=== PATIENT | male | born 1970 | race Caucasian/White ===

== ENCOUNTER 2016-12-17 01:28 | Emergency (ER) | payer OTHER ==
[~2016-12-17 01:28] MED LIST: VICODIN 5/500 T1 TAB PO
[2016-12-17] MEDS ORDERED: LEVEMIR FL100 UNIT/1 SUBQ (01:49)
[2016-12-17] MEDS ORDERED: NOVOLOG100 U/ML SUBQ (01:50)
[2016-12-17] MEDS ORDERED: NEURONTIN (01:50)
[2016-12-17 01:54] LABS: HEMATOCRIT 37.5 % (38.0-50.0); HEMOGLOBIN 12.4 gm/dL (13.0-16.0); MEAN CORPUSCULAR HEMOGLOBIN 27.5 PG (28-34); MEAN CORPUSCULAR HGB CONC 33.1 g/dL (30-36); MEAN PLATELET VOLUME 6.8 FL (6.5-11.5); RED BLOOD COUNT 4.52 X10e (3.90-5.60); RED CELL DISTRIBUTION WIDTH 13.8 % (11.0-15.5); WHITE BLOOD COUNT 14.2 X10e3 (4.0-10.5)
[2016-12-17 02:14] LABS: BUN/CREATININE RATIO 23.33; CALCIUM SERUM 8.6 mg/dL (8.4-10.2); CREATININE SERUM 0.6 mg/dL (0.6-1.4); GLOM FILT RATE Estimated 118.9 mL/min (>60)
[2016-12-17 02:15] LABS: POTASSIUM 2.6 mmol/L (3.5-5.1)
[2016-12-17 02:58] LABS: URINE SOURCE CLEAN CATCH
[2016-12-17 03:00] LABS: URINE APPEARANCE CLEAR; URINE BILIRUBIN NEG (NEG); URINE BLOOD NEG (NEG); URINE COLOR YELLOW; URINE GLUCOSE 100 MG/DL (NORM); URINE KETONE NEG (NEG); URINE LEUKOCYTE ESTERASE NEG (NEG); URINE NITRATE NEG (NEG); URINE PROTEIN NEG (NEG); URINE SPECIFIC GRAVITY >=1.030 (1.003-1.035); URINE UROBILINOGEN 0.2 MG/DL (NORM)
[2016-12-17 03:01] LABS: MICRO INDICATED? NO
[2016-12-17 03:11] LABS: AMPHETAMINE POS (NEG); BARBITURATES NEG (NEG); BENZODIAZEPINES NEG (NEG); COCAINE NEG (NEG); MARIJUANA NEG (NEG); OPIATES NEG (NEG); TRICYCLIC ANTIDEPRESSANTS NEG (NEG); U METHADONE NEG (NEG)
== END 2016-12-17 05:35 | disposition home or self-care (01) ==
LOC: SED 01:28
PROVIDERS: Emergency Medicine
DX: E11.649 Type 2 diabetes mellitus with hypoglycemia without coma (principal); E87.6 Hypokalemia; F15.10 Other stimulant abuse, uncomplicated; Z88.5 Allergy status to narcotic agent; Z88.6 Allergy status to analgesic agent; Z79.4 Long term (current) use of insulin
CPT/HCPCS: 80048; 80307; 81003; 82947; 83735; 85027; 96361; 96374; 96375; 99284

== ENCOUNTER 2017-03-04 16:56 | Emergency (ER) | payer OTHER ==
--- NOTE | ~2017-03-04 | CT71 ---
[facility]. [facility] A Service of [facility] RADIOLOGY TEXT RESULTS PATIENT: ABELARDO PHAM LOCATION: SED : 66 UNIT #: [id number] AGE: [address]: RAMON GUZMAN SEX: M ORDER DR: [id number] [place] [id number] E MR#: [id number] Acc #: [id number] NAME: ABELARDO PHAM : 1970 SEX: M STUDY DATE/TIME: 03/04/2017 18:00 UNIT: SED ROOM: STUDY DESCRIPTION: CT Head Wo Contrast Attending Physician: Ramon Guzman Ordering Physician: Ramon Guzman Primary Care Physician: Primary Care Physician No MEDICAL IMAGING REPORT This report is preliminary unless electronic signature is present. EXAM CT head 03/04/2017 HISTORY Focus on right ear canal, right ear pain, possible broken stick in ear canal. FINDINGS CT head performed skull base through vertex without intravenous contrast. No prior studies for comparison. This CT examination was performed with one or more of the following radiation dose reduction techniques: automatic exposure control, adjustment of mA and/or kV according to patient size, and iterative reconstruction. The brainstem is unremarkable. Cerebellum and cerebral hemispheres show normal ferreira matter - white matter differentiation. No hemorrhage. No evidence of acute cortical ischemia. Midline structures are nondisplaced. The basal ganglia are intact. Ventricles, cisterns and sulci within normal limits of size and contour. No intra- or extraaxial mass effect or abnormal intracranial fluid collection. The intraorbital soft tissues are unremarkable. No fracture. No radiodense foreign body seen in bilateral external auditory canals. No acute appearing soft tissue abnormality. Please correlate with physical examination. The visualized paranasal sinuses and mastoid air cells are clear. No fracture. IMPRESSION 1. No radiodense foreign body is seen in the bilateral external auditory canals. No acute appearing soft tissue abnormality. Please correlate with physical examination. 2. No fracture. 3. Brain is normal in appearance. [facility] A Service of [facility] RADIOLOGY TEXT RESULTS PATIENT: ABELARDO PHAM LOCATION: SED : 66 UNIT #: [id number] AGE: [address]: RAMON GUZMAN SEX: M ORDER DR: Dictated by... Tyrone Payne M.D. THIS IS AN ELECTRONICALLY VERIFIED REPORT Tyrone Payne M.D. at 03/05/2017 6:04 PM Diana TD: 03/05/2017 07:05 JOB #: [id number] MEDICAL IMAGING REPORT Page 1 of 1
[~2017-03-04 16:56] MED LIST changes: +LEVEMIR FL100 UNIT/1 SUBQ; +NEURONTIN; +NOVOLOG100 U/ML SUBQ
== END 2017-03-04 18:33 | disposition home or self-care (01) ==
LOC: SED 16:56
DX: S09.21XA Traumatic rupture of right ear drum, initial encounter (principal); E11.9 Type 2 diabetes mellitus without complications; F15.10 Other stimulant abuse, uncomplicated; F17.200 Nicotine dependence, unspecified, uncomplicated; Z88.5 Allergy status to narcotic agent; X58.XXXA Exposure to other specified factors, initial encounter
CPT/HCPCS: 70450; 90471; 90715; 99283

== ENCOUNTER 2017-04-23 12:22 | Inpatient (IN) | payer OTHER ==
[~2017-04-23] VITALS: Ht 177.8 cm; Wt 68.2 kg
--- NOTE | ~2017-04-23 | CT57 ---
[facility] A Service of [facility] RADIOLOGY TEXT RESULTS PATIENT: ABELARDO PHAM LOCATION: [facility] 310- : 66 UNIT #: [id number] AGE: [address]: Omar Houston MD SEX: M ORDER DR: [id number] [facility] [address] [facility]. [place], [place] [address] [id number] I MR#: [id number] Acc #: [id number] NAME: ABELARDO PHAM : 1970 SEX: M STUDY DATE/TIME: 04/24/2017 13:27 UNIT: A PCU ROOM: 310 STUDY DESCRIPTION: CT Chest Wo Cont Attending Physician: Omar Houston M.D. Ordering Physician: Omar Houston M.D. Primary Care Physician: Primary Care Physician No MEDICAL IMAGING REPORT This report is preliminary unless electronic signature is present EXAM CT chest without contrast HISTORY Shortness of air, respiratory failure, productive cough for several days. TECHNIQUE This CT exam was performed with one or more of the following radiation dose reduction techniques: automatic control, adjustment of mA and/or kV according to patient size, and iterative reconstruction. FINDINGS CT chest without contrast demonstrates minimal patchy subsegmental infiltrate or atelectasis in the posterior left upper lobe, in the superior right upper lobe, and slightly greater subsegmental infiltrates in the lingula and left lower lobe. Additional mild atelectasis in the posterior lower lobes. Trace bilateral pleural effusions. There is a 7 mm subpleural nodule in the posterior left upper lobe, approximating the interlobar fissure. Unless there are older outside CTs to document long-term stability, followup chest CT in 6-12 months would be recommended. Mild right axillary adenopathy with nodes measuring up to 1.3 cm. No mediastinal or hilar adenopathy. IMPRESSION 1. [id number] patchy multifocal subsegmental infiltrates in the lingula and left lower lobe and to a lesser degree in the bilateral upper lobes. These are nonspecific and could be infectious or inflammatory. 2. Minimal incidental subpleural atelectasis in the posterior lower lobes and incidental trace bilateral pleural effusions. 3. 7 mm pulmonary nodule in the posterior left upper lobe closely approximating the interlobar fissure. Unless there are older outside CTs to document long-term stability, follow up chest CT in 6-12 STS. [facility] A Service of [facility] RADIOLOGY TEXT RESULTS PATIENT: ABELARDO PHAM LOCATION: [facility] 310-01 : [birth year] UNIT #: [id number] AGE: [address]: Omar Houston MD SEX: M ORDER DR: months would be recommended. 4. Mild right axillary adenopathy measuring up to 1.3 cm. Dictated by... Jayson Tello M.D. THIS IS AN ELECTRONICALLY VERIFIED REPORT Jayson Tello M.D. at 04/25/2017 2:15 PM ROSAURA/makenzie TD: 04/25/2017 03:52 JOB #: [id number] MEDICAL IMAGING REPORT Page 1 of 1 COPY
--- NOTE | ~2017-04-23 | CO ---
Unit #: [id number] #: [id number] Patient: ABELARDO PHAM [id number] [address] [place], [place] [address] [id number] I MR#: [id number] NAME: ABELARDO PHAM ROOM: 310 Age: 46 Sex: M Admission Date: 04/23/2017 : 1970 Attending Physician: Omar Houston M.D. Primary Care Physician: Primary Care Physician No Consultation Date: 04/24/2017 CONSULTATION REPORT REASON FOR CONSULTATION Management of diabetes mellitus HISTORY OF PRESENT ILLNESS This is a 46-year-old male with history of type 1 diabetes mellitus, methamphetamine abuse, hypertension, depression, who presented to the emergency room for the low blood sugar. On the day of admission, family was unable to wake the patient up. EMS was called. His blood sugar was found to be only 23. The patient was treated with the dextrose. Upon arrival, blood glucose of 84. In the ER, the patient had O2 saturation of 78%. Chest x-ray was negative. He was treated with the IV fluids and started on Zosyn and vancomycin due to the elevated lactic acid levels and white cell count above 15,000. The patient's hypoglycemia has resolved. I have been asked to see the patient for management of diabetes mellitus and hypoglycemia. PAST MEDICAL HISTORY Type 1 diabetes mellitus, insulin dependent; depression; hypertension; methamphetamine abuse. PAST SURGICAL HISTORY Hand surgery and foot surgery. SOCIAL HISTORY Lives alone. SOCIAL HISTORY There is no tobacco or alcohol. Denies illicit drugs. FAMILY HISTORY None currently. ALLERGIES To morphine and hydrocodone. HOME MEDICATIONS Bactroban, Humalog, Zestril, Levemir 25 units b.i.d., and NovoLog sliding scale. The patient does not remember the exact amount of scale. REVIEW OF SYSTEMS A 12-point review of systems completed. Please see HPI, otherwise it is unremarkable. PHYSICAL EXAMINATION Unit #: [id number] #: [id number] Patient: ABELARDO PHAM GENERAL: He is looking comfortable. No acute distress. VITAL SIGNS: Temperature 98, pulse 89, respirations 16, blood pressure 134/90. HEENT: EOMI. Pupils equally reactive to light. NECK: Supple. CHEST: Good air entry. CVS: Regular rhythm. No murmurs. ABDOMEN: Soft and nontender. Bowel sounds positive. EXTREMITIES: No edema or ulcers are noted. DIAGNOSTIC STUDIES LABORATORY RESULTS: Reviewed. Creatinine is 1.6, sodium 137, potassium 3.7. A1c is 11.3. ASSESSMENT 1. Type 1 diabetes mellitus, poorly controlled. 2. History of methamphetamine abuse. 3. Hypoglycemia. 4. Insulin dependence. PLAN Restart the patient on Levemir 10 units subcu b.i.d., NovoLog 4 to 5 units each meal. Cover with supplemental sliding scale. We will limit his carbs to 60 g per meal. Accu-Cheks a.c. and h.s. Dictated by... Reina Loaiza/pasquale TD: 04/24/2017 20:00 JOB #: [id number] CONSULTATION REPORT Page 1 of 1 X Carlos Rees MD X CONSULTATION REPORT
--- NOTE | ~2017-04-23 | OR ---
Unit #: [id number] #: [id number] Patient: ABELARDO PHAM [id number] [place] [address] [facility]. [place], [place] [address] [id number] I MR#: [id number] NAME: ABELARDO PHAM ROOM: 310 Date of Procedure: 04/25/2017 Admission Date: 04/23/2017 Surgeon: Josh Carmona M.D. : 1970 Attending Physician: Omar Houston M.D. Primary Care Physician: Primary Care Physician No OPERATIVE REPORT PREOPERATIVE DIAGNOSES Anemia of chronic possible chronic gastrointestinal blood loss and iron deficiency anemia. The patient has history of diabetes which is uncontrolled. PROCEDURE PERFORMED Upper gastrointestinal endoscopy and biopsy. POSTOPERATIVE DIAGNOSES Completely normal examination except for mild antral erythema. A biopsy was obtained from the antrum for CLOtest. The examination was otherwise normal. RECOMMENDATIONS 1. Discontinue IV Protonix. The patient will be started on Protonix 40 mg p.o. daily. 2. Repeat CBC and CMP in the morning. 3. The patient will be discharged home from GI standpoint. 4. 1800 calorie CCD diet. SEDATION USED MAC. DESCRIPTION OF PROCEDURE Following detailed explanation of the potential risks and complications of an upper endoscopy, namely perforation, bleeding, complication related to sedation, the patient was brought to GI lab and laid in the left lateral decubitus position. Lubricated tip of the Olympus video upper endoscope was passed through the bite block into the proximal esophagus under direct vision. The entire esophageal mucosa was examined and appeared normal. Z-line was nicely demarcated, there being no esophagitis or hiatus hernia. The scope was then advanced into the gastric cavity and the latter was insufflated. Mucosa of the fundus, body, and antrum was examined. The patient was noted to have mild diffuse prepyloric antral erythema. Pylorus was intubated with visualization of the normal duodenal bulb and second and third part of the duodenum. Upon withdrawal and retroflexion, incisura, cardia, and greater curve examined and no additional findings noted. A biopsy was obtained from the antrum for CLOtest. The scope was withdrawn in the distal esophagus. The entire esophageal mucosa was examined all the way up to pharynx. No additional findings noted. The patient tolerated the procedure without any postprocedure complications. Unit #: [id number] #: [id number] Patient: ABELARDO PHAM Dictated by... Reina Carrillo/pasquale TD: 04/27/2017 06:52 JOB #: [id number] CC: Carlos Rees M.D. OPERATIVE REPORT Page 1 of 1 X Josh Carmona MD X PROCEDURE OPERATIVE NOTE
--- NOTE | ~2017-04-23 | CO ---
Unit #: [id number] #: [id number] Patient: ABELARDO CHING [id number] [address] [place], [place] [address] [id number] I MR#: [id number] NAME: ABELARDO CHING ROOM: 310 Age: 46 Sex: M Admission Date: 04/23/2017 : 1970 Attending Physician: Omar Houston M.D. Consultation Date: 04/26/2017 CONSULTATION REPORT REASON FOR CONSULTATION Acute kidney injury. HISTORY OF PRESENT ILLNESS Mr. Ching is a 46-year-old white male with a past medical history of diabetes mellitus, hypertension, depression, history of methamphetamine use, who presented to the hospital because of hypoglycemia. At the emergency department, the patient was noted to have a low blood sugar of 23, and chest x-ray in the emergency department showed possible pneumonia. His lactic acid at the time of admission was 3.9 with a white blood cell of 15.5. The patient stated that he has been having fever and chills as well. The patient was started on Zosyn, vancomycin, and IV fluid. His creatinine at time of admission was 0.6 mg/dL; next day, it went up to 1.6; next day, it went to 2.3 and today, it is 2.2 mg/dL. We were consulted to help in management of his acute kidney injury. The patient stated that he feels much better today. He is making a lot more urine than at the time of his presentation. PAST MEDICAL HISTORY As mentioned above: 1. Diabetes mellitus, type 1. 2. Hypertension. 3. Depression. 4. History of methamphetamine use. PAST SURGICAL HISTORY Hand surgery and foot surgery. FAMILY HISTORY Notable for diabetes in his dad. ALLERGIES Morphine and hydrocodone. HOME MEDICATIONS Include Humalog, Zestril, Levemir, Bactroban. REVIEW OF SYSTEMS A 12-point review of systems was conducted and they are all negative except what is per History of Present Illness. PHYSICAL EXAMINATION VITAL SIGNS: Temperature 96.8, heart rate 98, respiratory rate 21, and blood pressure 120/80, O2 saturations 98%. Unit #: [id number] #: [id number] Patient: ABELARDO CHING GENERAL: Alert and oriented x3, in no acute distress. NECK: No JVD. No lymphadenopathy. CHEST: Clear to auscultation bilaterally. HEART: Regular rate and rhythm. S1 and S2 normal. ABDOMEN: Bowel sounds positive. No tenderness. No guarding. EXTREMITIES: No edema. No cyanosis. No clubbing. DIAGNOSTIC STUDIES LABORATORY RESULTS: BUN is 17, creatinine 2.2, calcium 8.3. Hemoglobin 9.6, white blood cells 10.4, hematocrit 28.3. Ferritin 151. TSH 5.3. ASSESSMENT AND PLAN 1. Acute kidney injury, likely due to sepsis and possibly related to vancomycin/Zosyn toxicity though it is less likely. The patient's creatinine today is down to 2.2 mg/dL. Kidney function was likely continuing to improve. We will increase IV fluid rate to 150 mL/hour. We will avoid all nephrotoxic medication. We will obtain urinalysis and urine electrolytes. Urinalysis was collected at time of admission showed no evidence of proteinuria or hematuria. 2. Pneumonia. Currently, the patient is switched to Levaquin every 48 hours, adjusted for his kidney function. We will continue. 3. History of diabetes mellitus. 4. History of hypertension. 5. History of methamphetamine use. Thank you for allowing us to take care of this patient. Dictated by... Magui Mccarty M.D. CRISTIAN/pasquale TD: 04/27/2017 05:28 JOB #: [id number] CONSULTATION REPORT Page 1 of 1 X X CONSULTATION REPORT
--- NOTE | ~2017-04-23 | DS ---
Unit #: [id number] #: [id number] Patient: ABELARDO PHAM [id number] [address] [address] [id number] I MR#: [id number] NAME: ABELARDO PHAM ROOM: 310 Age: 46 Sex: M Admission Date: 04/23/2017 : 1970 Discharge Date: 04/30/2017 Attending Physician: Julian Holman M.D. Primary Care Physician: No Primary Care Physician DISCHARGE SUMMARY DISCHARGE DIAGNOSES 1. Diabetes mellitus. 2. Hypoglycemia. 3. Pneumonia. 4. Acute kidney injury with acute tubular necrosis, acute renal failure. 5. Lower extremity diabetic ulcers. JOB [id number] ADDEND HOSPITAL COURSE The patient is a 46-year-old man with a history significant for insulin dependent diabetes mellitus, who presented to the hospital with an episode of hypoglycemia. Blood sugar initially on presentation was noted to be 23. Received treatment with IV dextrose and improved to 84. During his admission, the patient's insulin regimen was adjusted and patient did not have any further episodes of hypoglycemia. His blood sugar was controlled during the admission also. Also during that admission the patient was diagnosed with pneumonia on presentation and he was started on empiric broad spectrum antibiotics. His symptoms improved and he will be completing a course of Levaquin for completion of his antibiotics. Also during admission, the patient was noted to have acute renal failure secondary to acute kidney injury. Nephrology was consulted and the patient was monitored. Creatinine was as high as 2.3. Discharge creatinine is 1.9. His JOHANNY inhibitor has been discontinued. His blood pressure will be managed with Norvasc. Also during his admission, the patient received local wound care for his lower extremity ulcers which he will continue as an outpatient. DISCHARGE MEDICATIONS 1. Mupirocin cream to apply topically over affected areas twice daily. 2. Amlodipine 5 mg p.o. twice daily. 3. Levemir insulin 10 units subcu twice daily before breakfast and before supper. 4. Aspart insulin 4 units subcu 3x a day with meals. 5. NovoLog sliding scale - for blood sugar between 150 and 199 1 unit, for blood sugar between 200 and 250 2 units. 6. Pepcid 20 mg p.o. daily. 7. Levaquin 750 mg p.o. q.48 hour for 3 more doses. DISCHARGE INSTRUCTIONS Patient is to follow up with primary care physician. Patient is to have a followup basic metabolic panel drawn once weekly for 2 weeks with results Unit #: [id number] #: [id number] Patient: ABELARDO PHAM faxed to nephrology, Dr. Dexter Singh's office. Dictated by... Reina Jimenez/thu TD: 05/01/2017 11:46 JOB #: [id number] DISCHARGE SUMMARY Page 1 of 1 X X DISCHARGE SUMMARY
--- NOTE | ~2017-04-23 | CR72 ---
[facility] A Service of [facility] RADIOLOGY TEXT RESULTS PATIENT: ABELARDO PHAM LOCATION: [facility] 310- : [birth year] UNIT #: [id number] AGE: [address]: Aniya Swanson MD SEX: M ORDER DR: [id number] [facility] [address]. [place], [place] [address] [id number] I MR#: [id number] #: [id number] NAME: ABELARDO PHAM : 1970 SEX: M STUDY DATE/TIME: 04/23/2017 13:30 [facility] RO[facility]: 310 STUDY DESCRIPTION: CR Chest Single View Portable Attending Physician: Aniya Sawnson M.D. Ordering Physician: Kee Arriola75 Cami Almanza Primary Care Physician: Primary Care Physician No MEDICAL IMAGING REPORT This report is preliminary unless electronic signature is present EXAM Chest x-ray 04/23/2017. HISTORY 46-year-old male in the ED complaining of shortness of air and cough beginning earlier today. Low blood sugar. TECHNIQUE AP portable chest radiographs. FINDINGS The lungs are expanded and clear. Heart size and pulmonary vascularity are within normal limits. No visible pulmonary infiltrate or pleural effusion. IMPRESSION No active disease. Dictated by... Rebel Reese M.D. THIS IS AN ELECTRONICALLY VERIFIED REPORT Rebel Reese M.D. at 04/24/2017 6:03 AM ANANT/makenzie TD: 04/24/2017 00:15 JOB #: [id number] MEDICAL IMAGING REPORT Page 1 of 1 COPY
--- NOTE | ~2017-04-23 | US77 ---
[facility] A Service of [facility] RADIOLOGY TEXT RESULTS PATIENT: ABELARDO PHAM LOCATION: [facility] 310- : 66 UNIT #: [id number] AGE: [address]: Omar Houston MD SEX: M ORDER DR: [id number] [facility] [address]. [place], [place] [address] [id number] I MR#: [id number] Acc #: [id number] NAME: ABELARDO PHAM : 1970 SEX: M STUDY DATE/TIME: 04/26/2017 9:55 UNIT: C3A PCU ROOM: 310 STUDY DESCRIPTION: US Kidney Bilateral Complete Attending Physician: Omar Houston M.D. Ordering Physician: Omar Houston M.D. Primary Care Physician: No Primary Care Physician MEDICAL IMAGING REPORT This report is preliminary unless electronic signature is present EXAM Renal sonogram HISTORY Elevated creatinine. Pain over the kidneys, beginning on 04/23/2017. Insulin-dependent diabetes. TECHNIQUE Ultrasound evaluation of the kidneys was performed with ferreira-scale and color-flow imaging. FINDINGS The right kidney measures 12.5 x 6 cm. There is no evidence of mass, cyst, or hydronephrosis. The left kidney measures 10.9 x 5 cm with no evidence of mass, cyst, or hydronephrosis. No shadowing stones are seen on either side. The bladder has a smooth contour. IMPRESSION Negative renal sonogram. Dictated by... Gomez Horner M.D. THIS IS AN ELECTRONICALLY VERIFIED REPORT Gomez Horner M.D. at 04/27/2017 10:56 AM DALE/johny TD: 04/27/2017 07:47 JOB #: [id number] MEDICAL IMAGING REPORT Page 1 of 1 COPY
--- NOTE | ~2017-04-23 | CO ---
Unit #: [id number] #: [id number] Patient: ABELARDO CHING [id number] [address] [place], [place] [address] [id number] I MR#: [id number] NAME: ABELARDO CHING ROOM: 310 Age: 46 Sex: M Admission Date: 04/23/2017 : 1970 Attending Physician: Omar Houston M.D. Consultation Date: 04/25/2017 CONSULTATION REPORT REASON FOR CONSULTATION Anemia possibly of chronic gastrointestinal blood loss. HISTORY OF PRESENT ILLNESS Mr. Ching is a 46-year-old white gentleman. He has presented history of hypoglycemia and altered mentation on a background of uncontrolled diabetes as well as methamphetamine usage. The patient also has history of hypertension and depression. In the emergency room, his blood sugar was found to be 23 and he was given intravenous glucose. He also had some chills and fever, but it was not recorded as per records. He uses Levemir 25 units b.i.d. as well as sliding scale insulin. Upon admission, he had hypoxia with room air oxygen saturation of 78%. PAST MEDICAL HISTORY In the past, he has had longstanding history of type 1 diabetes as well as depression, hypertension, and history of methamphetamine abuse. PAST SURGICAL HISTORY Previous surgeries have included hand and foot surgery. SOCIAL HISTORY The patient lives by himself. He does not smoke or drink alcohol. Does not use any recreation, but does have history of methamphetamine use. He is unemployed. FAMILY HISTORY Father having had diabetes. ALLERGIES To morphine and hydrocodone. MEDICATIONS At home included Levemir insulin, Humalog sliding scale as well as Zestril and Bactroban. REVIEW OF SYSTEMS Detailed review of organ system does not reveal any recent weight loss. No history of fever, chills, or rigors. No history of headache, seizures, or syncope. There is history of altered mentation and near somnolence as a result of hypoglycemia. The patient also has extensive skin lesions all over his lower extremities and trunk as well as arms. He says he was seeing wound care for the latter. PHYSICAL EXAMINATION Unit #: [id number] #: [id number] Patient: ABELARDO CHING GENERAL: He is awake, alert, oriented, and appears lean and thin and somewhat malnourished. VITAL SIGNS: Indicated temperature of 98.5, pulse is 86 per minute and regular, respiratory rate is 18, blood pressure is 140/95. He weighs 154 pounds which is higher than his baseline weight of 147. HEENT: He has moderate pallor. There being no icterus, lymphadenopathy, or peripheral edema. CARDIOVASCULAR: Normal heart sounds. No murmurs on auscultation. LUNGS: Normal breath sounds. Good air entry. ABDOMEN: Soft and nontender. Liver and spleen are not palpable. Bowel sounds normal. DIAGNOSTIC STUDIES LABORATORY RESULTS: Shows a hemoglobin of 9 with a baseline hemoglobin of 12, red cell indices are normochromic and normocytic, his white count on admission was 16.6 and showing a declining trend, platelet count is 469. Serum chemistry shows a BUN and creatinine of 18 and 2.3 indicating underlying intrinsic renal disease from diabetes. Albumin is 2.1. AST, ALT, alkaline phosphatase are all normal. The patient also has low iron TIBC and transferrin saturation, indicating either anemia of chronic disease or anemia of iron deficiency. The stool studies for occult blood are negative for Hemoccult blood. CLINICAL IMPRESSION The patient most likely has anemia as a result of diabetic renal disease. He does have uncontrolled diabetes with chronic renal insufficiency. The stool studies for occult blood are negative. The iron indices are suggestive of anemia of chronic disease or iron deficiency. The patient is already getting iron infusion. A diagnostic endoscopy is warranted to be scheduled later today. The pros and cons of procedure, potential risks, and complications were discussed with the patient and he was reassured. Thank you for asking me to see this pleasant gentleman. I appreciated the consult. Dictated by... Reina Carrillo/pasquale TD: 04/27/2017 07:08 JOB #: [id number] CONSULTATION REPORT Page 1 of 1 X Josh Carmona MD X CONSULTATION REPORT
--- NOTE | ~2017-04-23 | CO ---
Unit #: [id number] #: [id number] Patient: ABELARDO PHAM [id number] [address] [place], [place] [address] [id number] MR#: [id number] NAME: ABELARDO PHAM ROOM: 310 Age: 46 Sex: M Admission Date: 04/23/2017 : 1970 Attending Physician: Omar Houston M.D. Consultation Date: 04/25/2017 CONSULTATION REPORT REASON FOR CONSULTATION Pneumonia. HISTORY OF PRESENT ILLNESS This is a 46-year-old male with past medical history significant for diabetes, hypertension, depression, and polysubstance abuse, who presented to the emergency room for evaluation of low blood sugar and altered mental status. Apparently, the patient was found in his car unresponsive. Upon EMS arrival, his blood sugar was 23. The patient admitted to having some chills, but denied any fever or chills, but he has been having nonproductive cough. He had also loose stool and felt nauseated, but no abdominal pain. In the emergency room, his chest x-ray initially was unremarkable; however, his oxygen saturation was 78% on room air. His lactic acid was elevated up to 3.9. PAST MEDICAL HISTORY 1. Diabetes. 2. Depression. 3. Hypertension. 4. Polysubstance substance abuse. PAST SURGICAL HISTORY 1. Hand surgery. 2. Foot surgery. SOCIAL HISTORY The patient lives alone. No history of alcohol or drug abuse. However, he uses methamphetamine. FAMILY HISTORY Diabetes. ALLERGIES Morphine, hydrocodone. HOME MEDICATIONS Bactroban, Humalog, Zestril, Levemir. REVIEW OF SYSTEMS A 12-point review of systems was obtained and was negative except for what Unit #: [id number] #: [id number] Patient: ABELARDO PHAM was mentioned in the HPI. PHYSICAL EXAMIATION VITAL SIGNS: Temperature now 98.5, pulse 101, blood pressure is 126/81. HEENT: Atraumatic and normocephalic. PERRLA. EOMI. NECK: Supple. No JVD. No lymphadenopathy. CHEST: Bilateral fine rhonchi mainly on the right. HEART: S1 and S2. No murmurs, gallops, or rubs. ABDOMEN: Soft, nontender. Bowel sounds positive. No hepatosplenomegaly. EXTREMITIES: Diabetic ulcers on his right foot. SKIN: As above. [employer]: Awake, alert, oriented x3. No focal motor/sensory deficits. DIAGNOSTIC STUDIES LABORATORY RESULTS: Creatinine 2.3. Sodium 134. Hemoglobin 9.5, white blood count 14.5. ASSESSMENT 1. Healthcare-associated pneumonia likely Gram negative/ methicillin-resistant Staphylococcus aureus. 2. Diabetic ulcer. 3. Altered mental status. 4. Hypoglycemia. 5. Diabetes. 6. Polysubstance abuse. PLAN 1. We will continue the patient on oxygen and wean off as tolerated. His sat on presentation was 78% on room air. 2. Bronchodilator mucolytics and antitussive. 3. Sputum culture if possible. 4. Continue current medication pending final cultures and workup. 5. Wound care eval for diabetic ulcer. 6. Counseling regarding compliance. 7. DVT prophylaxis. Dictated by... Dominick Bergeron M.D. EA/pasquale TD: 04/26/2017 00:09 JOB #: [id number] CONSULTATION REPORT Page 1 of 1 X DOMINICK BARRERA MD X CONSULTATION REPORT
--- NOTE | ~2017-04-23 | HP ---
Unit #: [id number] #: [id number] Patient: ABELARDO PHAM [id number] [facility]. [place], [place] [address] [id number] MR#: [id number] NAME: ABELARDO PHAM ROOM: 66869 Age: 46 Sex: M Admission Date: 04/23/2017 : 1970 Attending Physician: Aniya Swanson M.D. HISTORY AND PHYSICAL CHIEF COMPLAINT Low blood sugar. HISTORY OF PRESENT ILLNESS The patient is a 46-year-old male with a past medical history of diabetes, hypertension, depression, and methamphetamine abuse, who presented to the emergency department for evaluation of the above. History is obtained from chart review and discussion with ER staff, as well as from the patient. The patient states that he does not recall today's events. Per ER staff, the patient was found in a car unresponsive. Upon EMS arrival, his blood sugar was noted to be 23. He was given an amp of dextrose prior to arrival. Upon arrival in the emergency department, glucose was 84 on comprehensive metabolic panel. The patient states that he has not been feeling well for two to three days. He states that he has had chills and undocumented fever. He reports nonproductive cough. He has had some loose stool. He denies abdominal pain, no chest pain, no urinary symptoms. The patient states that his blood sugars are typically in the 300s at home. He takes Levemir 25 units twice daily, as well as sliding scale insulin. In the emergency department, initial oxygen saturation was 78% on room air. Chest x-ray is being read as no active disease. The patient was given two liters of normal saline, as well as vancomycin and Zosyn. He is being admitted to [facility] for evaluation and further treatment. Also of note, lactic acid was 3.9, white blood cell count 15.5. PAST MEDICAL HISTORY 1. Admission to [facility] for pneumonia within the past year. 2. Diabetes. 3. Depression. 4. Hypertension. 5. History of methamphetamine abuse. PAST SURGICAL HISTORY 1. Hand surgery. 2. Foot surgery. SOCIAL HISTORY The patient lives alone. There is no tobacco or alcohol use. He denies illicit drug use but does have a history of methamphetamine abuse. He is Unit #: [id number] #: [id number] Patient: ABELARDO PHAM. FAMILY HISTORY Notable for his dad having diabetes. ALLERGIES Morphine, hydrocodone. HOME MEDICATIONS 1. Bactroban t.i.d. 2. Humalog sliding scale. 3. Zestril 5 mg daily. 4. Levemir 25 units b.i.d. REVIEW OF SYSTEMS A complete review of systems is negative except as indicated in the HPI. The patient has multiple scattered excoriations and abrasions involving the upper and lower extremities, as well as the torso. He states that these have been present for months. He states that he was told they were due to diabetes. He is not currently seeing Wound Care. PHYSICAL EXAMINATION VITAL SIGNS: Temperature is 94.9, most recently 100.4, pulse 117, respirations 21, blood pressure 118/80, oxygen saturation 78% on room air, most recently 99% on 2 liters. GENERAL: The patient is a male who is awake and alert. HEENT: Head is atraumatic. Mucous membranes are moist. NECK: Supple. Trachea is midline. CARDIOVASCULAR: Regular rate and rhythm. LUNGS: Coarse breath sounds bilaterally. Breathing is not labored with conversation. ABDOMEN: Soft and nontender with bowel sounds present in all four quadrants. EXTREMITIES: Scattered excoriations and abrasions involving the upper and lower extremities, as well as the torso. PSYCHIATRIC: Mood and affect are normal. The patient is cooperative. SKIN: Previously described abnormalities. NEUROLOGIC: The patient is oriented x3. He follows commands. He is moving all extremities. DIAGNOSTIC STUDIES LABORATORY: Urinalysis shows 250 glucose. Urine toxicology screen is negative. Troponin is less than 0.05. Lactic acid is 3.9. Comprehensive metabolic panel notable for glucose of 84, alkaline phosphatase 135, albumin 2.8, lipase is 15. INR is 0.9. Complete blood count notable for white blood cell count of 15.5, hemoglobin and hematocrit 11.9 and 35.8, respectively, platelets are 586,000. IMAGING: Chest x-ray is read as nothing active. CARDIOLOGY: EKG shows sinus tachycardia with a rate of 156 beats per minute. Most recent heart rate is 140. ASSESSMENT The patient is a 46-year-old male with: 1. Sepsis with initial lactic acid of 3.9. The patient received two liters of normal saline in the emergency department. 2. Pneumonia. The patient received vancomycin and Zosyn in the Unit #: [id number] #: [id number] Patient: ABELARDO PHAM emergency department. 3. Acute respiratory failure, hypoxic, with oxygen saturation of 78% on room air, currently saturating in the 90s on two liters. 4. Hypothermia with initial temperature of 94.9, most recent temperature 100.4. 5. Diabetes. 6. Hypertension. 7. Depression. 8. History of methamphetamine abuse. The patient currently denies. 9. Leg wounds. PLAN 1. Admit to intermediate level. 2. Healthy heart, consistent carbohydrate diet if passes bedside swallow. 3. Normal saline at 125 mL/hour. 4. Sepsis protocol. 5. Blood cultures x2. 6. Sputum culture and sensitivity. 7. Supplemental oxygen. 8. Procalcitonin level. 9. Vancomycin IV and Zosyn IV pending further workup. 10. DuoNebs q.4 p.r.n. 11. P.r.n. Tylenol. 12. Neuro checks. 13. Frequent Accu-Cheks. 14. Hemoglobin A1c. 15. Serial cardiac enzymes. 16. Wound Care consult regarding leg wounds. 17. Repeat labs in the morning. 18. SCDs for DVT prophylaxis. 19. Additional workup and consultants based on above. 1. Dictated by Reina Mcghee/jen TD: 04/23/2017 18:47 JOB #: [id number] HISTORY AND PHYSICAL Page 1 of 1 X Aniya Swanson MD X HISTORY AND PHYSICAL
--- NOTE | ~2017-04-23 | EKG ---
PATIENT: ABELARDO PHAM UNIT #: [id number] Ventricular Rate: 156 BPM Atrial Rate: 156 BPM P-R Interval: 120 ms QRS Duration: 60 ms Q-T Interval: 310 ms QTC Calculation(Bezet): 499 ms P Batchelor: 45 degrees Calculated R Batchelor: 75 degrees Calculated T Batchelor: 68 degrees Diagnosis Line: Sinus tachycardia Diagnosis Line: Otherwise normal ECG Diagnosis Line: When compared with ECG of 23-APR-2017 13:29, Diagnosis Line: (unconfirmed) Diagnosis Line: No significant change was found Diagnosis Line: Confirmed by DIANNE LOPEZ MD ([id number]) on Diagnosis Line: 04/25/2017 11:31:15 AM INTERPRETING MD: JESSICA DUNN
[2017-04-23 13:11] LABS: URINE SOURCE CLEAN CATCH
[2017-04-23 13:16] LABS: URINE APPEARANCE CLEAR; URINE BILIRUBIN NEG (NEG); URINE BLOOD NEG (NEG); URINE COLOR YELLOW; URINE GLUCOSE 250 MG/DL (NEG); URINE KETONE NEG (NEG); URINE LEUKOCYTE ESTERASE NEG (NEG); URINE NITRATE NEG (NEG); URINE PROTEIN NEG (NEG); URINE SPECIFIC GRAVITY 1.014 (1.003-1.035); URINE UROBILINOGEN 0.2 MG/DL (NEG)
[2017-04-23 13:20] LABS: CULTURE INDICATED? NO
[2017-04-23 13:27] LABS: AMPHETAMINE NEG (NEG); BARBITURATES NEG (NEG); BENZODIAZEPINES NEG (NEG); COCAINE NEG (NEG); MARIJUANA NEG (NEG); OPIATES NEG (NEG); TRICYCLIC ANTIDEPRESSANTS NEG (NEG); U METHADONE NEG (NEG)
[2017-04-23 13:51] LABS: POC - CKMB 2.8 ng/mL (0.0-7.9); POC - TROPONIN <0.05 ng/mL (<=0.05)
[2017-04-23 13:59] LABS: BASOPHIL# 0.1 X10e3 (0-0.3); BASOPHIL% 0.7 % (0-2.5); EOSINOPHIL% 0.2 % (0.0-7.0); HEMATOCRIT 35.8 % (38.0-50.0); HEMOGLOBIN 11.9 gm/dL (13.0-16.0); LYMPHOCYTE# 1.6 X10e3 (1.0-3.5); LYMPHOCYTE% 10.3 % (17.0-45.0); MEAN CELL VOLUME 81.5 FL (83-96); MEAN CORPUSCULAR HEMOGLOBIN 27.2 PG (28-34); MEAN CORPUSCULAR HGB CONC 33.3 g/dL (30-36); MEAN PLATELET VOLUME 6.7 FL (6.5-11.5); MONOCYTE# 0.8 X10e3 (0-1.0); MONOCYTE% 5.1 % (3.0-12.0); NEUTROPHIL% 83.7 % (40-75); PLATELET COUNT 586 X10e3 (140-420); RED BLOOD COUNT 4.39 X10e (3.90-5.60); RED CELL DISTRIBUTION WIDTH 13.8 % (11.0-15.5); WHITE BLOOD COUNT 15.5 X10e3 (4.0-10.5)
[2017-04-23 14:06] LABS: DIFF IND YES
[2017-04-23 14:07] LABS: ALBUMIN SERUM 2.8 g/dL (3.5-5.0); ALKALINE PHOSPHATASE 135 U/L (32-92); ALT (SGPT) 38 U/L (10-40); AST (SGOT) 29 U/L (10-42); BILIRUBIN, DIRECT <0.1 mg/dL (0.0-0.2); BILIRUBIN,INDIRECT 0.4 mg/dL (0.0-0.9); BILIRUBIN,TOTAL 0.5 mg/dL (0.2-2.0); BLOOD UREA NITROGEN 8 mg/dL (9-23); BUN/CREATININE RATIO 13.33; CALCIUM SERUM 8.5 mg/dL (8.4-10.2); CARBON DIOXIDE 28 mmol/L (22-31); CHLORIDE 101 mmol/L (100-111); CREATININE SERUM 0.6 mg/dL (0.6-1.4); GLOM FILT RATE Estimated 118.9 mL/min (>60); GLUCOSE FASTING 84 mg/dL (70-110); LIPASE 15 U/L (22-51); POTASSIUM 3.7 mmol/L (3.5-5.1); PROTEIN TOTAL SERUM 7.3 g/dL (6.0-8.3); SODIUM 139 mmol/L (135-145)
[2017-04-23 14:12] LABS: INR 0.9; PARTIAL THROMBOPLASTIN TIME 25.7 SECONDS (23.5-31.3); PROTHROMBIN TIME (PATIENT) 9.7 SECONDS (10.0-11.7)
[2017-04-23] MEDS ORDERED: PATIENT'S PHARMACY (14:37)
[2017-04-23] MEDS ORDERED: LISINOPRIL PO (14:38)
[2017-04-23] MEDS ORDERED: LEVEMIR100 UNITS/ SUBQ (14:38)
[2017-04-23] MEDS ORDERED: HUMALOG KW100 UNIT/1 (14:38)
[2017-04-23] MEDS ORDERED: BACTROBAN15 GM TOP (14:38)
[2017-04-23 14:58] LABS: PLATELET ESTIMATE INCREASED (NORMAL)
[2017-04-23 15:00] LABS: RBC NORMAL YES
[2017-04-24 00:02] LABS: %MB 0.9 % (0.0-4.0); MB 1.4 ng/ml
[2017-04-24 05:17] LABS: BASOPHIL# 0.1 X10e3 (0-0.3); BASOPHIL% 0.7 % (0-2.5); EOSINOPHIL# 0.3 X10e3 (0-0.7); EOSINOPHIL% 1.5 % (0.0-7.0); HEMATOCRIT 26.5 % (38.0-50.0); LYMPHOCYTE# 1.6 X10e3 (1.0-3.5); LYMPHOCYTE% 9.6 % (17.0-45.0); MEAN CELL VOLUME 80.7 FL (83-96); MEAN CORPUSCULAR HEMOGLOBIN 27.6 PG (28-34); MEAN CORPUSCULAR HGB CONC 34.2 g/dL (30-36); MEAN PLATELET VOLUME 6.2 FL (6.5-11.5); MONOCYTE# 1.1 X10e3 (0-1.0); MONOCYTE% 6.6 % (3.0-12.0); NEUTROPHIL# 13.6 X10e3 (1.5-7.1); NEUTROPHIL% 81.6 % (40-75); PLATELET COUNT 441 X10e3 (140-420); RED BLOOD COUNT 3.28 X10e (3.90-5.60); WHITE BLOOD COUNT 16.6 X10e3 (4.0-10.5)
[2017-04-24 05:25] LABS: DIFF IND NO
[2017-04-24 06:38] LABS: ALBUMIN SERUM 2.1 g/dL (3.5-5.0); BILIRUBIN,TOTAL 0.7 mg/dL (0.2-2.0); BUN/CREATININE RATIO 10.62; CALCIUM SERUM 7.9 mg/dL (8.4-10.2); CREATININE SERUM 1.6 mg/dL (0.6-1.4); GLOM FILT RATE Estimated 50.2 mL/min (>60); POTASSIUM 3.7 mmol/L (3.5-5.1); PROTEIN TOTAL SERUM 5.4 g/dL (6.0-8.3)
[2017-04-24 06:58] LABS: %MB 0.9 % (0.0-4.0); MB 1.4 ng/ml
[2017-04-24 14:48] LABS: HEMATOCRIT 26.9 % (38.0-50.0); HEMOGLOBIN 9.1 gm/dL (13.0-16.0)
[2017-04-25 05:03] LABS: HEMATOCRIT 27.6 % (38.0-50.0); HEMOGLOBIN 9.5 gm/dL (13.0-16.0); MEAN CELL VOLUME 80.9 FL (83-96); MEAN CORPUSCULAR HEMOGLOBIN 27.7 PG (28-34); MEAN CORPUSCULAR HGB CONC 34.2 g/dL (30-36); RED BLOOD COUNT 3.42 X10e (3.90-5.60); RED CELL DISTRIBUTION WIDTH 14.2 % (11.0-15.5); WHITE BLOOD COUNT 14.5 X10e3 (4.0-10.5)
[2017-04-25 06:19] LABS: BUN/CREATININE RATIO 7.82; CALCIUM SERUM 7.8 mg/dL (8.4-10.2); CREATININE SERUM 2.3 mg/dL (0.6-1.4); GLOM FILT RATE Estimated 32.4 mL/min (>60); POTASSIUM 3.7 mmol/L (3.5-5.1)
[2017-04-26 05:45] LABS: HEMATOCRIT 28.3 % (38.0-50.0); HEMOGLOBIN 9.6 gm/dL (13.0-16.0); MEAN CELL VOLUME 80.6 FL (83-96); MEAN CORPUSCULAR HEMOGLOBIN 27.3 PG (28-34); MEAN CORPUSCULAR HGB CONC 33.8 g/dL (30-36); MEAN PLATELET VOLUME 6.4 FL (6.5-11.5); RED BLOOD COUNT 3.51 X10e (3.90-5.60); RED CELL DISTRIBUTION WIDTH 14.1 % (11.0-15.5); WHITE BLOOD COUNT 10.4 X10e3 (4.0-10.5)
[2017-04-26 06:06] LABS: BUN/CREATININE RATIO 7.72; CALCIUM SERUM 8.3 mg/dL (8.4-10.2); CREATININE SERUM 2.2 mg/dL (0.6-1.4); GLOM FILT RATE Estimated 34.2 mL/min (>60); POTASSIUM 3.9 mmol/L (3.5-5.1)
[2017-04-27 05:41] LABS: HEMATOCRIT 27.4 % (38.0-50.0); HEMOGLOBIN 9.5 gm/dL (13.0-16.0); MEAN CELL VOLUME 80.2 FL (83-96); MEAN CORPUSCULAR HEMOGLOBIN 27.7 PG (28-34); MEAN CORPUSCULAR HGB CONC 34.5 g/dL (30-36); MEAN PLATELET VOLUME 5.8 FL (6.5-11.5); RED BLOOD COUNT 3.42 X10e (3.90-5.60); RED CELL DISTRIBUTION WIDTH 13.9 % (11.0-15.5)
[2017-04-27 06:11] LABS: ALBUMIN SERUM 2.1 g/dL (3.5-5.0); BILIRUBIN,TOTAL 0.3 mg/dL (0.2-2.0); CALCIUM SERUM 8.1 mg/dL (8.4-10.2); GLOM FILT RATE Estimated 38.3 mL/min (>60); POTASSIUM 3.8 mmol/L (3.5-5.1); PROTEIN TOTAL SERUM 5.5 g/dL (6.0-8.3)
[2017-04-27 08:20] LABS: PROCALCITONIN 6.65 NG/ML
[2017-04-27 13:46] LABS: URINE APPEARANCE CLEAR; URINE BILIRUBIN NEG (NEG); URINE BLOOD NEG (NEG); URINE COLOR YELLOW; URINE GLUCOSE NEG (NEG); URINE KETONE NEG (NEG); URINE LEUKOCYTE ESTERASE NEG (NEG); URINE NITRATE NEG (NEG); URINE PROTEIN NEG (NEG); URINE SPECIFIC GRAVITY 1.008 (1.003-1.035); URINE UROBILINOGEN 0.2 MG/DL (NEG)
[2017-04-28 07:39] LABS: HEMATOCRIT 27.8 % (38.0-50.0); HEMOGLOBIN 9.5 gm/dL (13.0-16.0); MEAN CELL VOLUME 80.1 FL (83-96); MEAN CORPUSCULAR HEMOGLOBIN 27.5 PG (28-34); MEAN CORPUSCULAR HGB CONC 34.4 g/dL (30-36); RED BLOOD COUNT 3.47 X10e (3.90-5.60); RED CELL DISTRIBUTION WIDTH 13.8 % (11.0-15.5); WHITE BLOOD COUNT 7.4 X10e3 (4.0-10.5)
[2017-04-28 08:34] LABS: BUN/CREATININE RATIO 7.36; CALCIUM SERUM 8.1 mg/dL (8.4-10.2); CREATININE SERUM 1.9 mg/dL (0.6-1.4); GLOM FILT RATE Estimated 40.8 mL/min (>60); POTASSIUM 3.6 mmol/L (3.5-5.1)
[2017-04-29 06:21] LABS: GLOM FILT RATE Estimated 38.3 mL/min (>60); POTASSIUM 4.2 mmol/L (3.5-5.1)
[2017-04-30 06:18] LABS: BUN/CREATININE RATIO 8.42; CALCIUM SERUM 8.4 mg/dL (8.4-10.2); CREATININE SERUM 1.9 mg/dL (0.6-1.4); GLOM FILT RATE Estimated 40.8 mL/min (>60); POTASSIUM 4.1 mmol/L (3.5-5.1)
[2017-04-30] MEDS ORDERED: TYL325 PO (15:28)
[2017-04-30] MEDS ORDERED: NORVASC PO (15:29)
[2017-04-30] MEDS ORDERED: LEVEMIR FL100 UNIT/1 SUBQ (15:32)
[2017-04-30] MEDS ORDERED: HUMALOG KW200 UNIT/1 SUBQ (15:33)
[2017-04-30] MEDS ORDERED: HUMALOG KW100 UNIT/1 (15:36)
[2017-04-30] MEDS ORDERED: FAMOTIDINE20 MG PO (15:37)
[2017-04-30] MEDS ORDERED: LEVAQUIN750 MG PO (15:39)
[2017-05-01 11:31] LABS: ANA SCREEN Negative (Negative)
== END 2017-04-30 18:35 | disposition home or self-care (01) | DRG 871 ==
LOC: CED 12:22 → CEDOF 15:40 → C3A PCU 15:40 → CED 15:53 → CEDOF 15:53 → C3A PCU 20:46 → CEDOF 20:46 → C3A PCU 04-24 12:49
PROVIDERS: Emergency Medicine; Family Medicine; Internal Medicine; Internal Medicine Gastroenterology; Internal Medicine Nephrology; Internal Medicine Pulmonary Disease
PROC: 0DB78ZX Excision of Stomach, Pylorus, Via Natural or Artificial Opening Endoscopic, Diagnostic (ICD-10-PCS; principal; 2017-04-25 20:02)
DX: A41.9 Sepsis, unspecified organism (principal); J15.6 Pneumonia due to other Gram-negative bacteria; J96.01 Acute respiratory failure with hypoxia; N17.0 Acute kidney failure with tubular necrosis; E10.622 Type 1 diabetes mellitus with other skin ulcer; Z79.4 Long term (current) use of insulin; Z88.5 Allergy status to narcotic agent; F32.9 Major depressive disorder, single episode, unspecified; E10.649 Type 1 diabetes mellitus with hypoglycemia without coma; Z83.3 Family history of diabetes mellitus; T68.XXXA Hypothermia, initial encounter; D50.9 Iron deficiency anemia, unspecified; I12.9 Hypertensive chronic kidney disease with stage 1 through stage 4 chronic kidney disease, or unspecified chronic kidney disease; E10.22 Type 1 diabetes mellitus with diabetic chronic kidney disease; N18.9 Chronic kidney disease, unspecified
CPT/HCPCS: 71010; 71250; 76770; 80048; 80053; 80076; 80202; 80307; 81003; 82274; 82308; 82550; 82553; 82728; 82947; 83036; 83540; 83550; 83605; 83690; 84443; 84484; 85014; 85018; 85025; 85027; 85610; 85652; 85730; 86038; 86039; 87040; 87077; 93005; 94640; 94760; 96360; 99291; C9113; J1815; J1956; J2250; J2405; J2543; J2916; J3370